=== PATIENT | male | born 1975 ===

== ENCOUNTER 2022-10-22 18:00 | Outpatient (CLI) | payer BC | END 2022-10-22 18:01 | disposition home or self-care (01) | LOC: SLEEPLAB 18:00 | DX: G47.33 Obstructive sleep apnea (adult) (pediatric) (principal); R53.83 Other fatigue; R51.9 Headache, unspecified; K21.9 Gastro-esophageal reflux disease without esophagitis; R06.83 Snoring; G47.10 Hypersomnia, unspecified | CPT/HCPCS: 95800 ==